=== PATIENT | male | born 1965 | race Caucasian/White ===

== ENCOUNTER 2019-06-29 08:00 | Day surgery (SDC) | payer BC ==
[2019-06-28 10:15] VITALS: BMI 23.4
[2019-06-29 08:39] LABS: #Basophils 0.1 thou/uL (0.0-0.2); #Lymphocytes 1.5 thou/uL (1.20-3.40); #Monocytes 0.6 thou/uL (0.11-0.59); #Neutrophils 2.3 thou/uL (1.40-6.50); %Basophils 1.2 % (0.0-1.0); %Eosinophils 0.6 % (0.0-10.0); %Lymphocytes 34.3 % (21.0-51.0); %Monocytes 12.8 % (0.0-10.0); %Neutrophils 51.2 % (42.0-75.0); Hemoglobin 14.4 g/dL (14.0-18.0); Mean Corpuscular HGB CONC 34.2 g/dL (32.0-36.0); Mean Corpuscular Volume 90.7 fL (78.0-98.0); Mean Platelet Volume 5.9 fL (7.4-10.4); Platelet Count 265 thou/uL (130-400); Red Blood Cell (RBC) Count 4.66 mill/uL (4.70-6.10); White Blood Cell (WBC) Count 4.5 thou/uL (4.8-10.8)
[2019-06-29] MEDS ORDERED: Thrombin 5000 UNITS/5 ML VIAL ONE (08:39)
[2019-06-29] MEDS ORDERED: Sodium Chloride 0.9% 10 ML ONE (08:39)
[2019-06-29 08:49] LABS: Prothrombin Time 12.7 SEC (12.0-14.7)
[2019-06-29 08:50] LABS: PTT 36.8 SEC (22.9-36.1)
[2019-06-29 08:53] LABS: Anion Gap 16 mmol/L (10-20); BUN (Urea Nitrogen) 7 mg/dL (8.4-25.7); Calc. Creatinine Clearance 127 mL/min (70-130); Calcium 9.6 mg/dL (7.8-10.44); Carbon Dioxide 25 mmol/L (22-29); Chloride 95 mmol/L (98-107); Estimated GFR-MDRD Greater than 90; Glucose 99 mg/dL (70-105); Potassium 3.8 mmol/L (3.5-5.1); Sodium 132 mmol/L (136-145)
[2019-06-29] MEDS ORDERED: Fentanyl 100 MCG/2 ML VIAL ONE ×4 (08:54→14:45)
[2019-06-29] MEDS ORDERED: HYDROmorphone 0.5 MG/0.5 ML SYRINGE ONE ×5 (08:54→14:26)
[2019-06-29] MEDS ORDERED: Rocuronium Bromide 10 MG/ML (10ML VIAL) ONE (09:34)
[2019-06-29] MEDS ORDERED: Glycopyrrolate 0.2 MG/ML 5 ML SYRINGE ONE (09:34)
[2019-06-29] MEDS ORDERED: PROPOFOL 200 MG/20 ML VIAL ONE (09:34)
[2019-06-29] MEDS ORDERED: Ondansetron PF 4 MG/2 ML Vial ONE (09:34)
[2019-06-29] MEDS ORDERED: Lidocaine 1% PF 5 ML VIAL ONE (09:34)
[2019-06-29] MEDS ORDERED: Esmolol 100 MG/10 ML VIAL ONE (09:34)
[2019-06-29] MEDS ORDERED: Dexamethasone 20 MG/5 ML VIAL ONE (09:34)
[2019-06-29] MEDS ORDERED: Fleet Enema 133 ML BOT PR PRN (13:49)
[2019-06-29] MEDS ORDERED: traMADol HCl 50 MG TAB PO PRN (13:49)
[2019-06-29] MEDS ORDERED: Mag-Al 1200 mg/1200 mg/30 ML UDCUP PO PRN (13:49)
[2019-06-29] MEDS ORDERED: Acetaminophen 325 MG TAB PO PRN (13:49)
[2019-06-29] MEDS ORDERED: tiZANidine HCl 4 MG TAB PO PRN (13:49)
[2019-06-29] MEDS ORDERED: Milk Of Magnesia 30 ML UDCUP PO PRN (13:49)
[2019-06-29] MEDS ORDERED: Ondansetron PF 4 MG/2 ML Vial IVP PRN (13:49)
[2019-06-29] MEDS ORDERED: Acetaminophen/Codeine 30-300mg Tablet PO PRN (13:49)
[2019-06-29] MEDS ORDERED: Bisacodyl 10 MG SUPP PR PRN (13:49)
[2019-06-29] MEDS ORDERED: Promethazine HCl 25 MG/ML VIAL SLOW IVP PRN (14:20)
[2019-06-29] MEDS ORDERED: HYDROmorphone 2 MG/ML VIAL SLOW IVP PRN (14:20)
[2019-06-29] MEDS ORDERED: Ondansetron HCl/PF 4 MG/2 ML Vial IVP PRN (14:20)
[2019-06-29] MEDS ORDERED: Promethazine HCl 25 MG/ML VIAL IM PRN (14:20)
--- NOTE | 2019-06-29 15:17 | OP ---
DATE OF PROCEDURE: 06/29/2019 LOCATION: OR 5. STALLION KEEPER: Indiana Ornelas PA-C PRE-PROCEDURE DIAGNOSIS: Low back and leg pain with multilevel lumbar stenosis. POSTPROCEDURE DIAGNOSIS: Low back and leg pain with multilevel lumbar stenosis. PROCEDURES PERFORMED: 1. L1-L2, L2-L3, L3-L4, and L4-L5 laminectomies, partial facetectomies, and foraminotomies. 2. Left L4-L5 diskectomy with use of operative microscope for microdissection. DESCRIPTION OF PROCEDURE: After informed consent was obtained from the patient, the patient was brought to the OR. Proper patient, pause, and identification were carried out. He was placed under excellent general endotracheal anesthesia and positioned prone. The wound was sterilely cleansed, prepared, and draped. A linear dorota that would allow for the approach from the L1 through L5 dorsal spines. This area was sterilely cleansed, prepared, and draped. Proper patient, pause, and identification were carried out. The wound was then opened with a combination of sharp, monopolar, and blunt dissection. We then exposed the L1, L2, L3, L4, and L5 dorsal spines and lamina. Localization film confirmed our area of interest. We then performed L1, L2, L3, L4, L5 laminectomies, partial facetectomies, foraminotomies with excellent decompression of the common dural tube and brought the microscope in for left L4-L5 diskectomy. The common dural tube was completely decompressed. There was no spinal fluid leak with excellent decompression. Disk material was removed from the left L4-L5 segment. We then removed the microscope with copious irrigation to maximize hemostasis. The wound was then closed in anatomic layers following sprinkling of vancomycin powder. The patient emerged from anesthesia. Job ID: [id number]
--- NOTE | 2019-06-29 15:20 | EKG ---
Test Reason : PREOP Blood Pressure : / mmHG Vent. Rate : 092 BPM Atrial Rate : 092 BPM P-R Int : 218 ms QRS Dur : 088 ms QT Int : 362 ms P-R-T Axes : 073 049 058 degrees QTc Int : 447 ms Sinus rhythm with 1st degree A-V block Nonspecific ST abnormality Otherwise normal ECG No previous ECGs available Confirmed by ISAAC CALLAHAN ([id number]) on 06/29/2019 3:19:53 PM Referred By: RACHEL Confirmed By:ISAAC CALLAHAN
[2019-06-29] MEDS: Morphine 2 MG/ML SYRINGE SLOW IVP PRN ×4 (15:52→19:39)
[2019-06-29] MEDS: Sodium Chloride 0.9% 1,000 ML IV SCH ×2 (16:42→17:06)
[2019-06-29] MEDS: CEFAZOLIN 2 GM in Premix Bag 1 BAG IVPB SCH (17:04)
[2019-06-29] MEDS: Doxycycline 100 MG CAP PO SCH (21:26)
[2019-06-30] MEDS: CEFAZOLIN 2 GM in Premix Bag 1 BAG IVPB SCH (00:36)
[2019-06-30] MEDS: HYDROcodone/Acetaminophen 7.5/325 mg Tablet PO PRN ×2 (00:37→08:47)
[2019-06-30 06:19] LABS: Anion Gap 10 mmol/L (10-20); BUN (Urea Nitrogen) 7 mg/dL (8.4-25.7); Calc. Creatinine Clearance 127 mL/min (70-130); Calcium 9.2 mg/dL (7.8-10.44); Carbon Dioxide 30 mmol/L (22-29); Chloride 97 mmol/L (98-107); Estimated GFR-MDRD Greater than 90; Glucose 106 mg/dL (70-105); Potassium 3.7 mmol/L (3.5-5.1); Sodium 133 mmol/L (136-145)
[2019-06-30] MEDS: Sodium Chloride 0.9% 1,000 ML IV SCH (06:26)
[2019-06-30] MEDS ORDERED: Hydrochlorothiazide 25 MG TAB PO SCH (09:00)
[2019-06-30] MEDS ORDERED: Amlodipine 5 mg/Benazepril 20 mg CAP PO SCH (09:00)
[2019-06-30] MEDS: Doxycycline 100 MG CAP PO SCH (09:11)
[2019-06-30 11:05] VITALS: BP 132/78; TEMP 98.4
--- NOTE | 2019-06-30 17:32 | PRG ---
DATE OF SERVICE: Mr. Whitt is postoperative day 1 from lumbar decompression. He is doing well with resolution in his leg pain. He would like to go home. I am very pleased with how he is doing. Job ID: [id number]
== END 2019-06-30 12:35 | disposition home or self-care (01) ==
LOC: SDC 08:00 → SURG A 13:48 → SDC 06-30 12:35
PROVIDERS: ATTEND Surgery
PROC: 0ST20ZZ Resection of Lumbar Vertebral Disc, Open Approach (ICD-10-PCS; principal; 2019-06-30)
PROC: 01NB0ZZ Release Lumbar Nerve, Open Approach (ICD-10-PCS; principal; 2019-06-30)
DX: M48.061 Spinal stenosis, lumbar region without neurogenic claudication (principal); M51.16 Intervertebral disc disorders with radiculopathy, lumbar region; I10 Essential (primary) hypertension; Z79.899 Other long term (current) drug therapy
CPT/HCPCS: 36415; 76000; 80048; 85025; 85610; 85730; 93005; 93010; J0690; J1100; J1170; J2001; J2270; J2405; J2704; J3010; J3370; J3490